=== PATIENT | female | born 1995 | race Two or more races ===

== ENCOUNTER → 2022-01-22 | Emergency (ER) | payer OTHER | END | disposition left against medical advice (07) | LOC: ER 19:37 | DX: Z53.21 Procedure and treatment not carried out due to patient leaving prior to being seen by health care provider (principal) ==

== ENCOUNTER 2023-10-26 15:30 | Outpatient (CLI) | payer OTHER | END 2023-10-26 15:32 | disposition home or self-care (01) | LOC: PRENATAL 15:30 | PROVIDERS: ATTEND Obstetrics & Gynecology Maternal & Fetal Medicine | DX: O35.3XX0 Maternal care for (suspected) damage to fetus from viral disease in mother, not applicable or unspecified (principal); O44.00 Complete placenta previa NOS or without hemorrhage, unspecified trimester; Z3A.20 20 weeks gestation of pregnancy ==